=== PATIENT | male | born 1990 | race American Indian/Alaskan Native ===

== ENCOUNTER 2017-01-25 11:35 | Inpatient (IN) | payer OTHER ==
[2017-01-25] MEDS ORDERED: CLEOCIN 600 MG/50 mL 600 MG/50 ML BAG IV ONE (16:36)
[2017-01-25] MEDS ORDERED: TORADOL IV ONE (16:59)
[2017-01-25] MEDS ORDERED: NACL 0.9% 1000 ML 1,000 ML IV ONE (17:00)
[2017-01-25 17:11] LABS: Basophils % (Auto) 0.2 % (0.0-1.8); Hematocrit 39.7 % (35.5-45.6); Hemoglobin 13.9 gm/dl (11.8-15.2); Mean Corpuscular HGB Conc 35 % (32-34); Mean Corpuscular Hemoglobin 30 pg (28-32); Mean Corpuscular Volume 85 fl (84-94); Platelet Count 198 K/mm3 (140-440); Red Blood Count 4.66 M/mm3 (3.65-5.03); Red Cell Distribution Width 13.4 % (13.2-15.2); White Blood Count 19.2 K/mm3 (4.5-11.0)
[2017-01-25 17:29] LABS: Anion Gap 18 mmol/L; Blood Urea Nitrogen 9 mg/dL (9-20); Calcium 9.3 mg/dL (8.4-10.2); Carbon Dioxide 26 mmol/L (22-30); Chloride 95.5 mmol/L (98-107); Glucose 93 mg/dL (75-100); Potassium 3.5 mmol/L (3.6-5.0); Sodium 136 mmol/L (137-145)
[2017-01-25] MEDS ORDERED: NACL ONE (17:38)
--- NOTE | 2017-01-25 18:38 | Admit Criteria Form ---
Admission Criteria Documentation: CELLULITIS Clinical Indications for Admission to Inpatient Care (Place 'X' for any and all applicable criteria): Admission is indicated for ANY ONE of the following(1)(2)(3)(4)(5): [ ]I. Limb-threatening infection [ ]II. High-risk comorbid condition as indicated by ANY ONE of the following: [ ]a) Uncontrolled diabetes (eg, HbA1c greater than 10% (0.1)) [ ]b) Cirrhosis [ ]c) Neutropenia [ ]d) Asplenia [ ]e) Immunosuppression [ ]f) Symptomatic heart failure [ ]III. Failure of outpatient therapy as indicated by ALL of the following: [ ]a) Progression or no improvement after adequate trial (minimum of 48 hours, with longer period for stable lower extremity infection) [ ]b) Adequate antibiotic regimen as indicated by use of ANY ONE of the following: [ ]i) First-generation cephalosporin (e.g., cephalexin) [ ]ii) Antistaphylococcal penicillin (e.g., dicloxacillin) [ ]iii) Penicillin-allergic patient regimen (clindamycin, extended-spectrum fluoroquinolone, or doxycycline) [ ]iv) Resistant organism (eg, methicillin-resistant Staphylococcus aureus) regimen (6) [ ]c) Outpatient intravenous therapy regimen is not appropriate due to ANY ONE of the following. (7)(8)(9)(10): [ ]i) It was tried and was not successful (eg, progression of infection). [ ]ii) It is not available or cannot be arranged in a clinically appropriate time frame (e.g., the next day). [ ]iii) Clinical presentation (eg, acuity of infection, rapidity of progression, confirmed or suspected bacteremia) is judged to require ALL of the following: [ ]1) Immediate initiation of intravenous therapy ( eg, cannot wait for next day) [ ]2) Intensity of patient monitoring and observation (eg, vital sign measurement, checks for infection progression) that cannot be provided at other than inpatient level of care [ ]IV. Mental status changes [ ]V. Bacteremia [ ]. Hemodynamic instability [ ]VII. Suspected necrotizing soft tissue infection (e.g., gas in tissue)(11)( 12) [ ]VIII. Orbital infection (13)(14) [ ]IX. Associated surgical procedure (e.g., abscess drainage, debridement) not amenable to outpatient, emergency department, or observation care [ ]X. Cutaneous gangrene [ ]XI. High fever (temperature greater than 39.5 degrees C (103.1 degrees F) (oral)) not responsive to outpatient, emergency department, or observation care therapy [X]XIII. Inpatient admission required rather than observation care (Also use Cellulitis: Observation Care as appropriate) because of ANY ONE of the following : [ ]a) Periorbital or perineal infection that is severe or worsening [X]b) Severe pain requiring acute inpatient management [ ]c) IV fluid to replace significant ongoing (e.g., for over 24 hours) losses (greater than 3L/m2 per day) [ ]d) Compartment syndrome monitoring (17) [ ]e) Strict or protective (eg, laminar flow) isolation [ ]f) Urgent debridement or skin grafting [ ]g) Bone or joint debridement [ ]h) Immediate inpatient surgery [ ]i) Other condition, treatment or monitoring requiring inpatient admission Extended stay beyond goal length of stay may be needed for (1)(18): [ ]a) Necrotizing soft tissue infection or fasciitis [ ]b) Gram-negative infection [ ]c) Methicillin-resistant Staphylococcal aureus (MRSA) infection [ ]d) Peripheral venous insufficiency with cellulitis [ ]e) Extensive edema [ ]f) Sepsis or continued Hemodynamic instability [ ]g) Continued high fever or mental status change [ ]h) Bacteremia [ ]i) Active serious comorbid conditions ( eg, heart failure, renal insufficiency) The original [facility] content created by [employer] has been revised. The portions of the content which have been revised are identified through the use of italic text or in bold, and [facility] a division of [employer] has neither reviewed nor approved the modified material. All other unmodified content is copyright [facility] [employer] Please see references footnoted in the original [facility] [employer] edition 2016 Admission Criteria Met: Yes
--- NOTE | 2017-01-25 18:48 | Cat Scan Report ---
FINAL REPORT EXAM: CT FACIAL BONES W CON HISTORY: cellulitis TECHNIQUE: Serial axial images through the face during intravenous administration of 100 milliliters Omni 300 contrast with coronal and sagittal reconstruction PRIORS: None. FINDINGS: No gross abnormality is seen in the visualized portion of the brain. Orbits appear normal and symmetric. Mucosal thickening is seen in the right maxillary sinus. Multiple dental caries are seen. There is periapical lucency associated with multiple teeth in the right side of the maxilla and left side of the mandible. There is soft tissue swelling in the right side of the face with inflammatory stranding in the subcutaneous fat. No drainable fluid collection is identified in the soft tissues. IMPRESSION: 1. Soft tissue swelling and inflammation is seen in the right side of the face, consistent with history of cellulitis. No drainable fluid collection is identified in the soft tissues at this time. 2. Dental caries are noted. There is periapical lucency associated with multiple teeth in the right side of the maxilla and left side of the mandible. There is cortical interruption in the anterior lateral aspect of right side of the maxilla associated with this which can be seen in series 3, image 35, which could be related to the inflammatory process in the soft tissues in the right side of the face. 3. Mucosal thickening is seen in the right maxillary sinus. This may be related to dental disease.
[2017-01-25] MEDS ORDERED: PERCOCET 5/325 PO PRN (20:01)
[2017-01-25] MEDS ORDERED: DULCOLAX PR PRN (20:01)
[2017-01-25] MEDS ORDERED: MILK OF MAGNESIA PO PRN (20:01)
[2017-01-25] MEDS ORDERED: TYLENOL PO PRN (20:01)
[2017-01-25] MEDS ORDERED: ZOFRAN IV PRN (20:01)
--- NOTE | 2017-01-25 20:01 | Event Note ---
Date: 01/25/17 See H/p in reports Rt Facial cellulitis
--- NOTE | 2017-01-25 20:51 | History and Physical Report ---
CHIEF COMPLAINT: Right-sided facial pain. HISTORY OF PRESENT ILLNESS: A 26-year-old male with no significant past medical history, comes in for right-sided facial swelling and pain and numbness. This has been going on for about 1 week, not able to tolerate p.o. intake. The pain is about 8 on a scale of 1-10. The patient has decayed teeth and root canals. No fever, no chills, no body aches. No exacerbating or relieving factors. Severity is 8 on a scale of 1-10. PAST MEDICAL HISTORY: None. PAST SURGICAL HISTORY: He had an eye surgery for strabismus. SOCIAL HISTORY: Does not smoke, marijuana very occasionally. FAMILY HISTORY: Hypertension. REVIEW OF SYSTEMS: Right facial swelling and severe pain. A 14-point review of systems is done, otherwise negative. PHYSICAL EXAMINATION: GENERAL: Young male, cooperative during examination. VITAL SIGNS: Significant for temperature of 100.3, pulse is 89, respirations are 20, blood pressure 130/81, sats are 100%. HEENT: Right facial swelling present. Slight tenderness present. Right eye periorbital area also swollen. NECK: Supple, no lymphadenopathy, no thyromegaly. LUNGS: Clear to auscultation and percussion. Good air entry. CARDIOVASCULAR: S1, S2 heard. No gallop, no murmur, no rub. Apical impulse in left fifth intercostal space and midclavicular line. ABDOMEN: Soft and benign. No hepatosplenomegaly. No guarding, no rigidity. Hernial orifices are normal. EXTREMITIES: Good pedal pulses. No pedal edema. CENTRAL NERVOUS SYSTEM: Alert and oriented x 4, nonfocal exam. SKIN: Normal. LABORATORY DATA: White count is 19,200, potassium is 3.5, otherwise labs are normal. CT scan shows soft tissue swelling and inflammation on the right of face consistent with cellulitis. No drainable fluid collections identified. Dental caries are noted. Mucosal thickening is seen in the right maxillary sinus. ASSESSMENT AND PLAN: 1. Right facial cellulitis secondary to dental carries. The patient started on IV clindamycin 900 IV q.8h. It should be sufficient. If necessary, add vancomycin at a later point. IV Dilaudid 0.5 for pain management. 2. Deep venous thrombosis prophylaxis, Lovenox 40 mg daily. Clear liquids for now. JOB# [id number] NASREEN/MICHELLE
[2017-01-25] MEDS: D5NS 1,000 ML IV SCH (21:47)
[2017-01-25] MEDS: DILAUDID IV PRN (21:48)
[2017-01-25] MEDS: CLEOCIN 900 MG/50 mL 900 MG/50 ML BAG IV SCH (21:48)
[2017-01-25] MEDS: LOVENOX SUB-Q SCH (21:49)
[2017-01-26] MEDS: DILAUDID IV PRN ×3 (05:22→21:42)
[2017-01-26 05:23] LABS: Basophils % (Auto) 0.4 % (0.0-1.8); Eosinophils % (Auto) 0.2 % (0.0-4.3); Hematocrit 36.7 % (35.5-45.6); Hemoglobin 12.5 gm/dl (11.8-15.2); Mean Corpuscular HGB Conc 34 % (32-34); Mean Corpuscular Hemoglobin 29 pg (28-32); Mean Corpuscular Volume 86 fl (84-94); Platelet Count 186 K/mm3 (140-440); Red Blood Count 4.29 M/mm3 (3.65-5.03); Red Cell Distribution Width 13.6 % (13.2-15.2); White Blood Count 16.2 K/mm3 (4.5-11.0)
[2017-01-26] MEDS: CLEOCIN 900 MG/50 mL 900 MG/50 ML BAG IV SCH ×3 (05:24→21:41)
[2017-01-26 05:46] LABS: Albumin 3.7 g/dL (3.9-5); Albumin/Globulin Ratio 1.2 %; Alkaline Phosphatase 48 units/L (35-129); Anion Gap 17 mmol/L; Bilirubin,Total 1.4 mg/dL (0.1-1.2); Blood Urea Nitrogen 9 mg/dL (9-20); Calcium 8.4 mg/dL (8.4-10.2); Carbon Dioxide 26 mmol/L (22-30); Chloride 99.9 mmol/L (98-107); Glucose 109 mg/dL (75-100); Potassium 3.3 mmol/L (3.6-5.0); Sodium 140 mmol/L (137-145); Total Protein 6.9 g/dL (6.3-8.2)
[2017-01-26 05:49] LABS: Alanine Aminotransferase < 5 units/L (7-56)
--- NOTE | 2017-01-26 09:32 | Progress Note ---
Assessment and Plan Assessment and plan: Facial cellulitis. Ct of face/sinuses with contrast: 1) soft tissue swelling and inflammation is seen in the right side of face, consistent with history of cellulitis. No drainable fluid collection is identified and soft tissue at this time. 2) dental caries are noted. Mucosal thickening is seen in the right maxillary sinus. This is related to the dental disease. Continue IV antibiotics. Consider ID consultation. Sepsis. Etiology secondary to above. Follow-up blood cultures and trend lactic acid levels History Interval history: 26 year old male with no significant PMHx presents to the ED c/o an upper respiratory infection that began 2 days ago. Associated symptoms include right side facial numbness, cough, rhinorrhea with clear sputum, fever, chills, swollen right face, body aches, headache, nausea, vomiting, and neck pain, but he denies SOB, chest pain, diarrhea, and trauma/injury to his head or mouth. Hospitalist Physical - Constitutional Vitals: Temp Pulse Resp BP Pulse Ox 99.8 F H 84 18 114/71 98 01/26/17 08:05 01/26/17 08:05 01/26/17 08:05 01/26/17 08:05 01/26/17 08:05 General appearance: Present: no acute distress, well-nourished - EENT Eyes: Present: PERRL, EOM intact ENT: hearing intact, clear oral mucosa, dentition normal, poor dentition, other (right side of face swollen) - Neck Neck: Present: supple, normal ROM - Respiratory Respiratory effort: normal Respiratory: bilateral: CTA - Cardiovascular Rhythm: regular Heart Sounds: Present: S1 & S2. Absent: gallop, rub - Extremities Extremities: no ischemia, No edema, Full ROM - Abdominal General gastrointestinal: soft, non-tender, non-distended, normal bowel sounds - Integumentary Integumentary: Present: clear, warm, dry - Neurologic Neurologic: CNII-XII intact, moves all extremities Results - Labs CBC & Chem 7: 01/26/17 04:51 01/26/17 04:51 Labs: Laboratory Last Values WBC 16.2 K/mm3 (4.5-11.0) H 01/26/17 04:51 RBC 4.29 M/mm3 (3.65-5.03) 01/26/17 04:51 Hgb 12.5 gm/dl (11.8-15.2) 01/26/17 04:51 Hct 36.7 % (35.5-45.6) 01/26/17 04:51 MCV 86 fl (84-94) 01/26/17 04:51 MCH 29 pg (28-32) 01/26/17 04:51 MCHC 34 % (32-34) 01/26/17 04:51 RDW 13.6 % (13.2-15.2) 01/26/17 04:51 Plt Count 186 K/mm3 (140-440) 01/26/17 04:51 Lymph % (Auto) 14.4 % (13.4-35.0) 01/26/17 04:51 [place] % (Auto) 8.4 % (0.0-7.3) H 01/26/17 04:51 Eos % (Auto) 0.2 % (0.0-4.3) 01/26/17 04:51 Baso % (Auto) 0.4 % (0.0-1.8) 01/26/17 04:51 Lymph # 2.3 K/mm3 (1.2-5.4) 01/26/17 04:51 [place] # 1.4 K/mm3 (0.0-0.8) H 01/26/17 04:51 Eos # 0.0 K/mm3 (0.0-0.4) 01/26/17 04:51 Baso # 0.1 K/mm3 (0.0-0.1) 01/26/17 04:51 Seg Neutrophils % 76.6 % (40.0-70.0) H 01/26/17 04:51 Seg Neutrophils # 12.4 K/mm3 (1.8-7.7) H 01/26/17 04:51 Sodium 140 mmol/L (137-145) 01/26/17 04:51 Potassium 3.3 mmol/L (3.6-5.0) L 01/26/17 04:51 Chloride 99.9 mmol/L (98-107) 01/26/17 04:51 Carbon Dioxide 26 mmol/L (22-30) 01/26/17 04:51 Anion Gap 17 mmol/L 01/26/17 04:51 BUN 9 mg/dL (9-20) 01/26/17 04:51 Creatinine 1.0 mg/dL (0.8-1.5) 01/26/17 04:51 Estimated GFR > 60 ml/min 01/26/17 04:51 BUN/Creatinine Ratio 9.00 % 01/26/17 04:51 Glucose 109 mg/dL (75-100) H 01/26/17 04:51 Lactic Acid 1.2 mmol/L (0.7-2.0) 01/25/17 16:51 Calcium 8.4 mg/dL (8.4-10.2) 01/26/17 04:51 Total Bilirubin 1.4 mg/dL (0.1-1.2) H 01/26/17 04:51 AST 10 units/L (5-40) 01/26/17 04:51 ALT < 5 units/L (7-56) L 01/26/17 04:51 Alkaline Phosphatase 48 units/L (35-129) 01/26/17 04:51 Total Protein 6.9 g/dL (6.3-8.2) 01/26/17 04:51 Albumin 3.7 g/dL (3.9-5) L 01/26/17 04:51 Albumin/Globulin Ratio 1.2 % 01/26/17 04:51
[2017-01-26] MEDS: LOVENOX SUB-Q SCH (10:05)
[2017-01-26] MEDS ORDERED: FLUARIX QUAD 2016-2017(36 MOS+) IM ONE (12:00)
[2017-01-26] MEDS: D5NS 1,000 ML IV SCH (14:18)
[2017-01-27] MEDS: PERCOCET 5/325 PO PRN ×6 (01:47→23:12)
[2017-01-27] MEDS: D5NS 1,000 ML IV SCH ×2 (04:11→18:23)
[2017-01-27 05:37] LABS: Basophils % (Auto) 0.3 % (0.0-1.8); Eosinophils % (Auto) 0.3 % (0.0-4.3); Hematocrit 36.2 % (35.5-45.6); Hemoglobin 12.1 gm/dl (11.8-15.2); Mean Corpuscular HGB Conc 33 % (32-34); Mean Corpuscular Hemoglobin 29 pg (28-32); Mean Corpuscular Volume 86 fl (84-94); Platelet Count 177 K/mm3 (140-440); Red Cell Distribution Width 13.7 % (13.2-15.2); White Blood Count 14.1 K/mm3 (4.5-11.0)
[2017-01-27 05:56] LABS: Anion Gap 16 mmol/L; BUN/Creatinine Ratio 2.22; Blood Urea Nitrogen 2 mg/dL (9-20); Calcium 8.5 mg/dL (8.4-10.2); Carbon Dioxide 28 mmol/L (22-30); Chloride 99.7 mmol/L (98-107); Glucose 108 mg/dL (75-100); Potassium 3.3 mmol/L (3.6-5.0); Sodium 140 mmol/L (137-145)
[2017-01-27] MEDS: CLEOCIN 900 MG/50 mL 900 MG/50 ML BAG IV SCH ×3 (06:10→21:50)
[2017-01-27] MEDS: LOVENOX SUB-Q SCH (10:06)
--- NOTE | 2017-01-27 11:04 | Progress Note ---
Assessment and Plan Assessment and plan: Facial cellulitis. Leukocytosis is improving. Ct of face/sinuses with contrast : 1) soft tissue swelling and inflammation is seen in the right side of face, consistent with history of cellulitis. No drainable fluid collection is identified and soft tissue at this time. 2) dental caries are noted. Mucosal thickening is seen in the right maxillary sinus. This is related to the dental disease. Continue IV antibiotics. Consider ID consultation. Sepsis. Etiology secondary to above. Follow-up blood cultures and trend lactic acid levels History Interval history: 26 year old male with no significant PMHx presents to the ED c/o an upper respiratory infection that began 2 days ago. Associated symptoms include right side facial numbness, cough, rhinorrhea with clear sputum, fever, chills, swollen right face, body aches, headache, nausea, vomiting, and neck pain, but he denies SOB, chest pain, diarrhea, and trauma/injury to his head or mouth. Hospitalist Physical - Constitutional Vitals: Temp Pulse Resp BP Pulse Ox 99.2 F 63 20 106/58 100 01/27/17 06:45 01/27/17 06:45 01/27/17 10:05 01/27/17 06:45 01/27/17 06:45 General appearance: Present: no acute distress, well-nourished - EENT Eyes: Present: PERRL, EOM intact ENT: hearing intact, clear oral mucosa, dentition normal - Neck Neck: Present: supple, normal ROM - Respiratory Respiratory effort: normal Respiratory: bilateral: CTA - Cardiovascular Rhythm: regular Heart Sounds: Present: S1 & S2. Absent: gallop, rub - Extremities Extremities: no ischemia, No edema, Full ROM - Abdominal General gastrointestinal: soft, non-tender, non-distended, normal bowel sounds - Integumentary Integumentary: Present: clear, warm, dry - Neurologic Neurologic: CNII-XII intact, moves all extremities Results - Labs CBC & Chem 7: 01/27/17 05:01 01/27/17 05:01 Labs: Laboratory Last Values WBC 14.1 K/mm3 (4.5-11.0) H 01/27/17 05:01 RBC 4.20 M/mm3 (3.65-5.03) 01/27/17 05:01 Hgb 12.1 gm/dl (11.8-15.2) 01/27/17 05:01 Hct 36.2 % (35.5-45.6) 01/27/17 05:01 MCV 86 fl (84-94) 01/27/17 05:01 MCH 29 pg (28-32) 01/27/17 05:01 MCHC 33 % (32-34) 01/27/17 05:01 RDW 13.7 % (13.2-15.2) 01/27/17 05:01 Plt Count 177 K/mm3 (140-440) 01/27/17 05:01 Lymph % (Auto) 18.4 % (13.4-35.0) 01/27/17 05:01 [place] % (Auto) 9.3 % (0.0-7.3) H 01/27/17 05:01 Eos % (Auto) 0.3 % (0.0-4.3) 01/27/17 05:01 Baso % (Auto) 0.3 % (0.0-1.8) 01/27/17 05:01 Lymph # 2.6 K/mm3 (1.2-5.4) 01/27/17 05:01 [place] # 1.3 K/mm3 (0.0-0.8) H 01/27/17 05:01 Eos # 0.0 K/mm3 (0.0-0.4) 01/27/17 05:01 Baso # 0.0 K/mm3 (0.0-0.1) 01/27/17 05:01 Seg Neutrophils % 71.7 % (40.0-70.0) H 01/27/17 05:01 Seg Neutrophils # 10.1 K/mm3 (1.8-7.7) H 01/27/17 05:01 Sodium 140 mmol/L (137-145) 01/27/17 05:01 Potassium 3.3 mmol/L (3.6-5.0) L 01/27/17 05:01 Chloride 99.7 mmol/L (98-107) 01/27/17 05:01 Carbon Dioxide 28 mmol/L (22-30) 01/27/17 05:01 Anion Gap 16 mmol/L 01/27/17 05:01 BUN 2 mg/dL (9-20) L 01/27/17 05:01 Creatinine 0.9 mg/dL (0.8-1.5) 01/27/17 05:01 Estimated GFR > 60 ml/min 01/27/17 05:01 BUN/Creatinine Ratio 2.22 % 01/27/17 05:01 Glucose 108 mg/dL (75-100) H 01/27/17 05:01 Lactic Acid 1.2 mmol/L (0.7-2.0) 01/25/17 16:51 Calcium 8.5 mg/dL (8.4-10.2) 01/27/17 05:01 Total Bilirubin 1.4 mg/dL (0.1-1.2) H 01/26/17 04:51 AST 10 units/L (5-40) 01/26/17 04:51 ALT < 5 units/L (7-56) L 01/26/17 04:51 Alkaline Phosphatase 48 units/L (35-129) 01/26/17 04:51 Total Protein 6.9 g/dL (6.3-8.2) 01/26/17 04:51 Albumin 3.7 g/dL (3.9-5) L 01/26/17 04:51 Albumin/Globulin Ratio 1.2 % 01/26/17 04:51
[2017-01-28] MEDS: PERCOCET 5/325 PO PRN ×2 (03:57→10:08)
[2017-01-28 04:22] LABS: Basophils % (Auto) 0.3 % (0.0-1.8); Eosinophils % (Auto) 0.9 % (0.0-4.3); Hematocrit 35.2 % (35.5-45.6); Hemoglobin 12.1 gm/dl (11.8-15.2); Mean Corpuscular HGB Conc 35 % (32-34); Mean Corpuscular Hemoglobin 30 pg (28-32); Mean Corpuscular Volume 85 fl (84-94); Platelet Count 179 K/mm3 (140-440); Red Blood Count 4.12 M/mm3 (3.65-5.03); Red Cell Distribution Width 13.5 % (13.2-15.2); White Blood Count 12.1 K/mm3 (4.5-11.0)
[2017-01-28 04:37] LABS: Anion Gap 14 mmol/L; BUN/Creatinine Ratio 2.22; Blood Urea Nitrogen 2 mg/dL (9-20); Calcium 8.2 mg/dL (8.4-10.2); Carbon Dioxide 29 mmol/L (22-30); Chloride 101.3 mmol/L (98-107); Glucose 102 mg/dL (75-100); Potassium 3.2 mmol/L (3.6-5.0); Sodium 141 mmol/L (137-145)
[2017-01-28] MEDS: CLEOCIN 900 MG/50 mL 900 MG/50 ML BAG IV SCH ×3 (06:26→21:39)
[2017-01-28] MEDS: D5NS 1,000 ML IV SCH ×2 (07:03→20:25)
--- NOTE | 2017-01-28 09:56 | Progress Note ---
Assessment and Plan Assessment and plan: Facial cellulitis. Leukocytosis is improving. Continue to follow up cultures. Sepsis. Etiology secondary to above. Follow-up blood cultures and trend lactic acid levels Hypokalemia. Replete potassium. History Interval history: 26 year old male with no significant PMHx presents to the ED c/o an upper respiratory infection that began 2 days ago. Associated symptoms include right side facial numbness, cough, rhinorrhea with clear sputum, fever, chills, swollen right face, body aches, headache, nausea, vomiting, and neck pain, but he denies SOB, chest pain, diarrhea, and trauma/injury to his head or mouth. Hospitalist Physical - Constitutional Vitals: Temp Pulse Resp BP Pulse Ox 99.7 F H 68 16 113/71 97 01/27/17 14:20 01/27/17 20:16 01/27/17 20:16 01/27/17 14:20 01/27/17 14:20 General appearance: Present: no acute distress, well-nourished - EENT Eyes: Present: PERRL, EOM intact ENT: hearing intact, clear oral mucosa, dentition normal - Neck Neck: Present: supple, normal ROM - Respiratory Respiratory effort: normal Respiratory: bilateral: CTA - Cardiovascular Rhythm: regular Heart Sounds: Present: S1 & S2. Absent: gallop, rub - Extremities Extremities: no ischemia, No edema, Full ROM - Abdominal General gastrointestinal: soft, non-tender, non-distended, normal bowel sounds - Integumentary Integumentary: Present: clear, warm, dry - Neurologic Neurologic: CNII-XII intact, moves all extremities Results - Labs CBC & Chem 7: 01/28/17 03:46 01/28/17 03:46 Labs: Laboratory Last Values WBC 12.1 K/mm3 (4.5-11.0) H 01/28/17 03:46 RBC 4.12 M/mm3 (3.65-5.03) 01/28/17 03:46 Hgb 12.1 gm/dl (11.8-15.2) 01/28/17 03:46 Hct 35.2 % (35.5-45.6) L 01/28/17 03:46 MCV 85 fl (84-94) 01/28/17 03:46 MCH 30 pg (28-32) 01/28/17 03:46 MCHC 35 % (32-34) H 01/28/17 03:46 RDW 13.5 % (13.2-15.2) 01/28/17 03:46 Plt Count 179 K/mm3 (140-440) 01/28/17 03:46 Lymph % (Auto) 20.3 % (13.4-35.0) 01/28/17 03:46 [place] % (Auto) 9.6 % (0.0-7.3) H 01/28/17 03:46 Eos % (Auto) 0.9 % (0.0-4.3) 01/28/17 03:46 Baso % (Auto) 0.3 % (0.0-1.8) 01/28/17 03:46 Lymph # 2.4 K/mm3 (1.2-5.4) 01/28/17 03:46 [place] # 1.2 K/mm3 (0.0-0.8) H 01/28/17 03:46 Eos # 0.1 K/mm3 (0.0-0.4) 01/28/17 03:46 Baso # 0.0 K/mm3 (0.0-0.1) 01/28/17 03:46 Seg Neutrophils % 68.9 % (40.0-70.0) 01/28/17 03:46 Seg Neutrophils # 8.3 K/mm3 (1.8-7.7) H 01/28/17 03:46 Sodium 141 mmol/L (137-145) 01/28/17 03:46 Potassium 3.2 mmol/L (3.6-5.0) L 01/28/17 03:46 Chloride 101.3 mmol/L (98-107) 01/28/17 03:46 Carbon Dioxide 29 mmol/L (22-30) 01/28/17 03:46 Anion Gap 14 mmol/L 01/28/17 03:46 BUN 2 mg/dL (9-20) L 01/28/17 03:46 Creatinine 0.9 mg/dL (0.8-1.5) 01/28/17 03:46 Estimated GFR > 60 ml/min 01/28/17 03:46 BUN/Creatinine Ratio 2.22 % 01/28/17 03:46 Glucose 102 mg/dL (75-100) H 01/28/17 03:46 Lactic Acid 1.2 mmol/L (0.7-2.0) 01/25/17 16:51 Calcium 8.2 mg/dL (8.4-10.2) L 01/28/17 03:46 Total Bilirubin 1.4 mg/dL (0.1-1.2) H 01/26/17 04:51 AST 10 units/L (5-40) 01/26/17 04:51 ALT < 5 units/L (7-56) L 01/26/17 04:51 Alkaline Phosphatase 48 units/L (35-129) 01/26/17 04:51 Total Protein 6.9 g/dL (6.3-8.2) 01/26/17 04:51 Albumin 3.7 g/dL (3.9-5) L 01/26/17 04:51 Albumin/Globulin Ratio 1.2 % 01/26/17 04:51
[2017-01-28] MEDS ORDERED: K-DUR PO ONE (10:00)
[2017-01-28] MEDS: LOVENOX SUB-Q SCH (10:11)
[2017-01-29 05:23] LABS: Basophils % (Auto) 0.4 % (0.0-1.8); Eosinophils % (Auto) 1.9 % (0.0-4.3); Hematocrit 36.6 % (35.5-45.6); Hemoglobin 12.4 gm/dl (11.8-15.2); Mean Corpuscular HGB Conc 34 % (32-34); Mean Corpuscular Hemoglobin 29 pg (28-32); Mean Corpuscular Volume 86 fl (84-94); Platelet Count 186 K/mm3 (140-440); Red Blood Count 4.25 M/mm3 (3.65-5.03); Red Cell Distribution Width 13.5 % (13.2-15.2); White Blood Count 8.3 K/mm3 (4.5-11.0)
[2017-01-29 05:35] LABS: Anion Gap 20 mmol/L; Blood Urea Nitrogen 2 mg/dL (9-20); Calcium 8.5 mg/dL (8.4-10.2); Carbon Dioxide 24 mmol/L (22-30); Chloride 102.2 mmol/L (98-107); Glucose 101 mg/dL (75-100); Potassium 3.8 mmol/L (3.6-5.0); Sodium 142 mmol/L (137-145)
[2017-01-29] MEDS: CLEOCIN 900 MG/50 mL 900 MG/50 ML BAG IV SCH (06:47)
[2017-01-29 08:01] VITALS: BP 106/63
--- NOTE | 2017-01-29 08:31 | Discharge Summary ---
Providers - Providers Date of Admission: 01/25/17 20:02 Date of discharge: 01/29/17 Attending physician: KASHMIR LEAVITT Primary care physician: [employer] Hospitalization Reason for admission: cellulitis Condition: Stable Hospital course: This is a 26-year-old male with no significant past medical history who presented to the emergency department with complaints of right sided facial swelling, pain and numbness. Patient states that his symptoms progressively worsened over the course of the week prior to admission. Patient also reported problems with dental caries and the need for a root canal. No obvious signs of abscess identified. Patient was admitted with a diagnosis of facial cellulitis and sepsis. CT scan of the face revealed the tissue swelling and inflammation in the right side of the face consistent with cellulitis. Patient also had dental caries noted on the CT scan but no reports of abscess. Patient was started on IV antibiotics and had slow with significant improvement. The swelling, pain and tenderness resolved. Patient is felt to have received maximal hospital benefit. Patient will be discharged home. Dedicated discharged home 35 minutes. Disposition: DISCHARGED TO HOME OR SELFCARE - Discharge Diagnoses (1) Sepsis Status: Acute Qualifiers: Sepsis type: S (2) Cellulitis of face Status: Acute (3) Dental caries Status: Acute Core Measure Documentation - Palliative Care Palliative Care/ Comfort Measures: Not Applicable - Core Measures Any of the following diagnoses?: none Exam - Constitutional Vitals: Temp Pulse Resp BP Pulse Ox 98.9 F 67 16 106/63 98 01/29/17 07:59 01/29/17 07:59 01/29/17 07:59 01/29/17 07:59 01/29/17 07:59 General appearance: Present: no acute distress, well-nourished - EENT Eyes: Present: PERRL ENT: hearing intact, clear oral mucosa - Neck Neck: Present: supple, normal ROM - Respiratory Respiratory effort: normal Respiratory: bilateral: CTA - Cardiovascular Heart Sounds: Present: S1 & S2. Absent: rub, click - Extremities Extremities: pulses symmetrical, No edema Peripheral Pulses: within normal limits - Abdominal General gastrointestinal: Present: soft, non-tender, non-distended, normal bowel sounds Male genitourinary: Present: normal - Integumentary Integumentary: Present: clear, warm, dry - Musculoskeletal Musculoskeletal: gait normal, strength equal bilaterally - Psychiatric Psychiatric: appropriate mood/affect, intact judgment & insight - Neurologic Neurologic: CNII-XII intact, moves all extremities Plan Activity: no restrictions Weight Bearing Status: Full Weight Bearing Diet: regular Follow up with: PRIMARY CARE, [Primary Care Provider] - 3-5 Days Prescriptions: Amoxicillin/K Clav Tab [Augmentin 875 mg] 1 tab PO Q12HR #20 tab oxyCODONE /ACETAMINOPHEN [Percocet 5/325 mg] 1 tab PO Q4H PRN #20 tablet PRN Reason: Pain, Moderate (4-6)
[2017-01-29] MEDS: LOVENOX SUB-Q SCH (11:15)
== END 2017-01-29 13:54 | disposition home or self-care (01) | DRG 872 ==
LOC: ED 11:35 → 3A 20:02
PROVIDERS: ADMIT Internal Medicine; ATTEND Hospitalist
DX: A41.9 Sepsis, unspecified organism (principal); L03.211 Cellulitis of face; K02.9 Dental caries, unspecified; E87.6 Hypokalemia; Z82.49 Family history of ischemic heart disease and other diseases of the circulatory system
CPT/HCPCS: 36415; 70487; 80048; 80053; 82140; 85025; 87040; 90686; 96361; 96374; 96375; J1170; J1650; J1885; J7030; J7042; Q9967